=== PATIENT | female | born 1990 | race Native Hawaiian/Other Pacific Islander ===

== ENCOUNTER 2020-01-18 15:37 | Outpatient (CLI) | payer OTHER ==
[2020-01-18 15:55] LABS: PLATELET COUNT 246 K/uL (152-353)
[2020-01-18 16:00] LABS: POTASSIUM 4.5 mmol/L (3.6-5.2)
== END 2020-01-18 21:42 | disposition home or self-care (01) ==
LOC: CT 15:37 → LABW 15:37
PROVIDERS: Nurse Practitioner Family
DX: R10.0 Acute abdomen (principal)
CPT/HCPCS: 36415; 80053; 85027; Q9963